=== PATIENT | female | born 1965 | race Caucasian/White ===

== ENCOUNTER 2016-10-16 08:33 | Day surgery (SDC) | payer BC ==
--- NOTE | ~2016-10-16 | EGD ---
EGD REPORT [facility] [address] [place] [address] NAME: NICHOLE BENAVIDES : 69 STATUS : [facility] PAT#: [id number] AGE: 50 ADM/REG DATE : 10/16/16 MR#: [id number] REPORT SERV DATE: 10/16/16 DICTATED BY: CHAPIS ARVIZU DATE: 10/16/16 REPORT STATUS : Draft [facility]: [facility] DATE: 10/16/16 Endoscopy Center Patient Name: Nichole Benavides Date of : 1965 Attending MD: CHAPIS ARVIZU MD Procedure Date No Time: 10/16/2016 Procedure: Colonoscopy Indications: FH of Colon Cancer - 1st degree relative, FH of Colon Cancer - multiple second-degree relatives Referring MD: АННА JACOB Medicines: as per anesthesia Complications: No immediate complications. Procedure: Pre-Anesthesia Assessment: - ASA Grade Assessment: III - A patient with severe systemic disease. After I obtained informed consent, the scope was passed under direct vision. Throughout the procedure, the patient's blood pressure, pulse, and oxygen saturations were monitored continuously. The [facility] [id number] was introduced through the anus and advanced to the cecum, identified by appendiceal orifice and ileocecal valve. The colonoscopy was performed without difficulty. The patient tolerated the procedure. The quality of the bowel preparation was adequate to identify polyps. Findings: The perianal and digital rectal examinations were normal. Many small and large-mouthed diverticula were found in the sigmoid colon, in the descending colon, in the transverse colon and in the ascending colon. Internal hemorrhoids were found during endoscopy and were mild. Impression: - Diverticulosis in the sigmoid colon, in the descending colon, in the transverse colon and in the ascending colon. - Internal hemorrhoids. Recommendation: - Repeat colonoscopy in 5 years for surveillance. Procedure Code(s): --- Professional --- 42820, Colonoscopy, flexible, proximal to splenic flexure; diagnostic, with or without collection of specimen(s) by brushing or washing, with or without colon decompression (separate procedure) EGD REPORT [facility] [address] [place] [address] NAME: NICHOLE BENAVIDES : [birth year] STATUS : [facility] PAT#: [id number] AGE: 50 ADM/REG DATE : 10/16/16 MR#: [id number] REPORT SERV DATE: 10/16/16 DICTATED BY: CHAPIS ARVIZU DATE: 10/16/16 REPORT STATUS : Draft TRANSCRIBED BY: [employer] DATE: 10/16/16 Diagnosis Code(s): --- Professional --- K64.8, Other hemorrhoids K57.30, Diverticulosis of large intestine without perforation or abscess without bleeding Z80.0, Family history of malignant neoplasm of digestive organs CPT copyright 2013 [employer]. All rights reserved. The codes documented in this report are preliminary and upon spring tacker review may be revised to meet current compliance requirements. CHAPIS ARVIZU MD 10/16/2016 9:57 AM This report has been signed electronically. Number of Addenda: 0 Note Initiated On: 10/16/2016 9:27 AM Scope Withdrawal Time 0 hours 8 minutes 46 seconds [address] [place] [address]
[~2016-10-16 08:33] MED LIST: *DENIES; ADVIL PO; COREG25 PO; METPAKSF PO; PRIN2.5 PO
== END 2016-10-16 23:59 | disposition home or self-care (01) ==
LOC: DMU 08:33
PROVIDERS: Internal Medicine Gastroenterology
PROC: 0DJD8ZZ Inspection of Lower Intestinal Tract, Via Natural or Artificial Opening Endoscopic (ICD-10-PCS; principal; 2016-10-16 10:00)
DX: Z12.11 Encounter for screening for malignant neoplasm of colon (principal); K64.8 Other hemorrhoids; K57.30 Diverticulosis of large intestine without perforation or abscess without bleeding; E66.01 Morbid (severe) obesity due to excess calories; Z90.89 Acquired absence of other organs; Z80.0 Family history of malignant neoplasm of digestive organs; Z98.51 Tubal ligation status; Z98.890 Other specified postprocedural states
CPT/HCPCS: 84703